=== PATIENT | female | born 1995 | race Hispanic/Latino ===

== ENCOUNTER → 2022-02-13 | Outpatient (REF) | payer OTHER ==
[2022-02-13 17:13] LABS: HEMATOCRIT 36.7 % (36.0-47.0); HEMOGLOBIN 12.2 g/dl (12.0-15.5); MEAN CORPUSCULAR HEMOGLOBIN 28.8 pg (27.0-33.0); MEAN CORPUSCULAR HGB CONC 33.2 g/dl (32.0-36.5); MEAN CORPUSCULAR VOLUME 86.8 fl (80.0-96.0); PLATELET COUNT, AUTOMATED 175 10^3/uL (150-450); RED BLOOD COUNT 4.23 10^6/uL (4.00-5.40); WHITE BLOOD COUNT 5.2 10^3/uL (4.0-10.0)
[2022-02-13 20:31] LABS: HCG, SERUM QUANTITATIVE 106079 MIU/ML
[2022-02-14 01:25] LABS: HEPATITIS C VIRUS ABY INDEX 0.1 INDEX (<0.8)
[2022-02-14 03:05] LABS: HIV 1&2 SCREEN CENTAUR NEGATIVE (NEGATIVE)
== END ==
LOC: M LAB REF 16:28
PROVIDERS: ATTEND Obstetrics & Gynecology
DX: Z32.01 Encounter for pregnancy test, result positive (principal); O36.80X0 Pregnancy with inconclusive fetal viability, not applicable or unspecified

== ENCOUNTER 2022-03-03 19:57 | Emergency (ER) | payer OTHER ==
[~2022-03-03] VITALS: Ht 160 cm; Wt 59.8 kg
[2022-03-03 21:22] LABS: BASO % 0.3 % (0.0-1.0); EOS % 0.2 % (0.0-3.0); HEMATOCRIT 37.6 % (36.0-47.0); HEMOGLOBIN 12.4 g/dl (12.0-15.5); LYMPH # 0.3 10^3/uL (1.5-5.0); LYMPH % 4.5 % (24.0-44.0); MEAN CORPUSCULAR HEMOGLOBIN 28.8 pg (27.0-33.0); MEAN CORPUSCULAR VOLUME 87.2 fl (80.0-96.0); MONO # 0.3 10^3/uL (0.0-0.8); MONO % 5.2 % (2.0-8.0); NEUTROPHILS # 5.2 10^3/uL (1.5-8.5); NEUTROPHILS % 89.3 % (36.0-66.0); PLATELET COUNT, AUTOMATED 145 10^3/uL (150-450); RED BLOOD COUNT 4.31 10^6/uL (4.00-5.40); WHITE BLOOD COUNT 5.8 10^3/uL (4.0-10.0)
[2022-03-03 21:48] LABS: ALBUMIN 3.1 GM/DL (3.2-5.2); ALT/SGPT 19 U/L (12-78); BILIRUBIN,DIRECT 0.1 MG/DL (0.0-0.2); BILIRUBIN,TOTAL 0.4 MG/DL (0.2-1.0); BLOOD UREA NITROGEN 13 MG/DL (7-18); CALCIUM LEVEL 8.7 MG/DL (8.5-10.1); CARBON DIOXIDE LEVEL 23 MEQ/L (21-32); CHLORIDE LEVEL 108 MEQ/L (98-107); CREATININE FOR GFR 0.79 MG/DL (0.55-1.30); GLOMERULAR FILTRATION RATE > 60.0 (>60); GLUCOSE, FASTING 102 MG/DL (70-100); LIPASE 99 U/L (73-393); POTASSIUM SERUM 4.3 MEQ/L (3.5-5.1); SODIUM LEVEL 139 MEQ/L (136-145); TOTAL PROTEIN 6.7 GM/DL (6.4-8.2)
[2022-03-03 22:44] LABS: HCG, SERUM QUANTITATIVE 93639 MIU/ML
[2022-03-04] MEDS ORDERED: ONDANSETRON 4MG 2ML VIAL IV ONE
[2022-03-04] MEDS ORDERED: NS 1,000 ML IV ONE
[2022-03-04] MEDS ORDERED: ACETAMINOPHEN 500 MG TAB PO ONE (00:15)
[2022-03-04 00:56] VITALS: BP 91/49
[2022-03-04] MEDS ORDERED: ONDA4TAB6 PO (01:40)
== END 2022-03-04 01:49 | disposition home or self-care (01) ==
LOC: M ED 19:57
DX: O98.511 Other viral diseases complicating pregnancy, first trimester (principal); U07.1 COVID-19; Z3A.08 8 weeks gestation of pregnancy
CPT/HCPCS: 80048; 80076; 83690; 84702; 85025; 87486; 87581; 87633; 87798; 96374; 99284; J2405

== ENCOUNTER → 2022-06-18 | Outpatient (CLI) | payer OTHER ==
[~2022-06-18] MED LIST: ONDA4TAB6 PO
[2022-06-18 09:27] LABS: HEMATOCRIT 35.1 % (36.0-47.0); HEMOGLOBIN 11.4 g/dl (12.0-15.5); MEAN CORPUSCULAR HEMOGLOBIN 28.9 pg (27.0-33.0); MEAN CORPUSCULAR HGB CONC 32.5 g/dl (32.0-36.5); MEAN CORPUSCULAR VOLUME 88.9 fl (80.0-96.0); PLATELET COUNT, AUTOMATED 144 10^3/uL (150-450); RED BLOOD COUNT 3.95 10^6/uL (4.00-5.40); WHITE BLOOD COUNT 4.9 10^3/uL (4.0-10.0)
== END ==
LOC: M LAB 08:25
PROVIDERS: ATTEND Obstetrics & Gynecology
DX: Z34.02 Encounter for supervision of normal first pregnancy, second trimester (principal); Z3A.00 Weeks of gestation of pregnancy not specified

== ENCOUNTER → 2022-09-05 | Outpatient (REF) | payer OTHER | LOC: M LAB REF 16:41 | PROVIDERS: ATTEND Obstetrics & Gynecology | DX: Z34.03 Encounter for supervision of normal first pregnancy, third trimester (principal) ==

== ENCOUNTER 2022-10-03 13:44 | Outpatient (CLI) | payer OTHER ==
[~2022-10-03] VITALS: Ht 157.5 cm; Wt 67.9 kg
[2022-10-03 14:24] VITALS: BP 123/78
[2022-10-03] MEDS ORDERED: PRENTAB9 PO (14:26)
[2022-10-03] MEDS ORDERED: HOME MED LIST COMPLETE! XX SCH (14:50)
== END 2022-10-03 17:05 | disposition home or self-care (01) ==
LOC: M LDO 13:44
PROVIDERS: ATTEND Advanced Practice Midwife
DX: O47.1 False labor at or after 37 completed weeks of gestation (principal); Z3A.40 40 weeks gestation of pregnancy
CPT/HCPCS: 59025; G0463

== ENCOUNTER 2022-10-04 12:54 | Outpatient (CLI) | payer OTHER ==
[~2022-10-04] VITALS: Ht 157.5 cm; Wt 68.3 kg
[~2022-10-04 12:54] MED LIST changes: +PRENTAB9 PO
[2022-10-04 13:08] VITALS: BP 130/83
[2022-10-04] MEDS ORDERED: HOME MED LIST COMPLETE! XX SCH (13:15)
[2022-10-04] MEDS ORDERED: LACTATED RINGER'S 1000 ML IV STA (15:19)
[2022-10-04] MEDS ORDERED: PROMETHAZINE 25MG/ML 1ML VIAL IV PRN (15:20)
[2022-10-04] MEDS ORDERED: MORPHINE 10 MG/ML 1ML VIAL SC ONE (15:20)
[2022-10-04] MEDS ORDERED: MORPHINE 10 MG/ML 1ML VIAL IV ONE (15:20)
[2022-10-04] MEDS ORDERED: LR 1,000 ML IV SCH ×2 (15:20→16:35)
[2022-10-04] MEDS ORDERED: SIMETHICONE 80MG CHEW TAB PO PRN (16:35)
[2022-10-04] MEDS ORDERED: KETOROLAC 30 MG/ML 1ML VIAL IV SCH (16:35)
[2022-10-04] MEDS ORDERED: RHOGAM 300MCG (1500IU) INJ IM SCH (16:35)
[2022-10-04] MEDS ORDERED: PERCOCET 5MG/325MG TAB PO PRN ×2 (16:35)
[2022-10-04] MEDS ORDERED: ANUSOL HC CREAM 30GM TOP PRN (16:35)
[2022-10-04] MEDS ORDERED: MOM 30ML SUSPENSION UDC PO PRN (16:35)
[2022-10-04] MEDS ORDERED: OXYTOCIN DRIP 30 UNITS in IV 1 EA IV SCH (16:35)
[2022-10-04] MEDS ORDERED: DOCUSATE SODIUM 100MG CAPSULE PO SCH (21:00)
[2022-10-05] MEDS ORDERED: PRENATAL VITAMINS CHEWABLE TABLET PO SCH (09:00)
[2022-10-05] MEDS ORDERED: IBUPROFEN 800 MG TAB PO SCH (18:35)
[2022-10-06] MEDS ORDERED: MEASLES,MUMPS,RUBELLA VACCINE INJ (MMR-II) SC.IMMUN ONE (09:00)
== END 2022-10-04 19:47 | disposition home or self-care (01) ==
LOC: M LDO 12:54
PROVIDERS: ATTEND Obstetrics & Gynecology
DX: O47.1 False labor at or after 37 completed weeks of gestation (principal); Z3A.40 40 weeks gestation of pregnancy
CPT/HCPCS: 59025; 96372; 96374; 96375; G0463; J2270; J2550

== ENCOUNTER 2022-10-06 04:57 | Inpatient (IN) | payer OTHER ==
[2022-10-06] VITALS (49 sets, daily range): BP systolic 97–147; BP diastolic 50–89
[~2022-10-06] VITALS: Ht 157.5 cm; Wt 68.1 kg
[2022-10-06] MEDS ORDERED: TUMS750C5 PO (05:24)
[2022-10-06] MEDS ORDERED: ACET325C5 PO (05:24)
[2022-10-06] MEDS ORDERED: HOME MED LIST COMPLETE! XX SCH (05:25)
[2022-10-06] MEDS ORDERED: OXYTOCIN 30UNITS IN 0.9% NaCl 500ML IV BAG As Ordered ONE (05:30)
[2022-10-06] MEDS ORDERED: LACTATED RINGER'S 1000 ML IV STA (05:33)
[2022-10-06 05:35] LABS: HEMATOCRIT 42.5 % (36.0-47.0); HEMOGLOBIN 13.8 g/dl (12.0-15.5); MEAN CORPUSCULAR HEMOGLOBIN 28.6 pg (27.0-33.0); MEAN CORPUSCULAR HGB CONC 32.5 g/dl (32.0-36.5); PLATELET COUNT, AUTOMATED 148 10^3/uL (150-450); RED BLOOD COUNT 4.83 10^6/uL (4.00-5.40); WHITE BLOOD COUNT 10.2 10^3/uL (4.0-10.0)
[2022-10-06] MEDS ORDERED: METHYLERGONOVINE MALEATE 0.2MG/ML 1ML VIAL IM PRN (05:35)
[2022-10-06] MEDS ORDERED: OXYTOCIN DRIP 30 UNITS in IV 1 EA IV PRN (05:35)
[2022-10-06] MEDS ORDERED: LIDOCAINE 1% MDV 20ML VIAL INFIL PRN (05:35)
[2022-10-06] MEDS ORDERED: CARBOPROST TROMETHAMINE 250 MCG/ML AMP IM PRN (05:35)
[2022-10-06] MEDS ORDERED: TRANEXAMIC ACID INJection 1,000 MG in NS 100 ML IV PRN (05:35)
[2022-10-06] MEDS: LR 1,000 ML IV SCH ×2 (06:23→10:10)
[2022-10-06] MEDS ORDERED: FENTANYL/ROPIVACAINE/NACL BAG 100 ML EPIDURAL SCH ×2 (06:35)
[2022-10-06] MEDS ORDERED: ePHEDrine SULFATE 25 MG/5 ML(5MG/ML) SYRINGE IVP PRN ×2 (06:35)
[2022-10-06] MEDS ORDERED: diphenhydrAMINE 50MG/ML VIAL IV PRN ×2 (06:35)
[2022-10-06] MEDS ORDERED: NALOXONE INJ 0.4MG/1ML VIAL IV PRN ×2 (06:35)
[2022-10-06] MEDS ORDERED: EPIDURAL/PCA KEYS XX PRN ×2 (06:35)
[2022-10-06] MEDS ORDERED: LR 500 ML IV PRN ×2 (06:35)
[2022-10-06] MEDS ORDERED: ONDANSETRON 4MG 2ML VIAL IV PRN ×2 (06:35)
[2022-10-06] MEDS: PRENATAL VITAMINS CHEWABLE TABLET PO SCH (09:00)
[2022-10-06] MEDS ORDERED: OXYTOCIN DRIP 30 UNITS in IV 1 EA IV SCH ×2 (11:10→16:15)
[2022-10-06] MEDS ORDERED: ACETAMINOPHEN TAB 650MG DOSE (2X325MG) PO ONE (12:45)
[2022-10-06 16:10] LABS: CORD GAS ABE A -9.1; CORD GAS HCO3 A 19.7 MEQ/L; CORD GAS O2 SAT A 77.3 %; CORD GAS PCO2 A 54.6 mmHg; CORD GAS PH A 7.176 UNITS; CORD GAS PO2 A 42.2 mmHg; CORD GAS SBC A 16.9 MEQ/L; CORD GAS TCO2 A 21.4 MEQ/L
[2022-10-06 16:11] LABS: CORD GAS ABE V -7.3; CORD GAS HCO3 V 18.3 MEQ/L; CORD GAS O2 SAT V 97.3 %; CORD GAS PCO2 V 37.6 mmHg; CORD GAS PH V 7.305 UNITS; CORD GAS PO2 V 80.9 mmHg; CORD GAS SBC V 18.6 MEQ/L; CORD GAS TCO2 V 19.4 MEQ/L
[2022-10-06] MEDS ORDERED: ACETAMINOPHEN 500 MG TAB PO PRN (16:15)
[2022-10-06] MEDS ORDERED: MOM 30ML SUSPENSION UDC PO PRN (16:15)
[2022-10-06] MEDS ORDERED: IBUPROFEN 600MG TAB PO PRN (16:15)
[2022-10-06] MEDS ORDERED: ACETAMINOPHEN TAB 650MG DOSE (2X325MG) PO PRN (16:15)
[2022-10-06] MEDS ORDERED: RHOGAM 300MCG (1500IU) INJ IM SCH (16:15)
[2022-10-06] MEDS ORDERED: METHYLERGONOVINE MALEATE 0.2 MG TAB PO PRN (16:15)
[2022-10-06] MEDS ORDERED: DIBUCAINE 1% OINTMENT 30GM TOP PRN (16:15)
[2022-10-06] MEDS: IBUPROFEN 800 MG TAB PO PRN (17:08)
[2022-10-06] MEDS: DOCUSATE SODIUM 100MG CAPSULE PO SCH (21:00)
[2022-10-07 06:00] VITALS: BP 116/55
[2022-10-07] MEDS: DOCUSATE SODIUM 100MG CAPSULE PO SCH ×2 (11:46→20:08)
[2022-10-07] MEDS: PRENATAL VITAMINS CHEWABLE TABLET PO SCH (11:46)
[2022-10-07] MEDS: IBUPROFEN 800 MG TAB PO PRN (11:46)
[2022-10-07 18:00] VITALS: BP 120/61
[2022-10-08 05:58] VITALS: BP 129/72
[2022-10-08] MEDS: PRENATAL VITAMINS CHEWABLE TABLET PO SCH (08:23)
[2022-10-08] MEDS: DOCUSATE SODIUM 100MG CAPSULE PO SCH (08:23)
[2022-10-08] MEDS ORDERED: MEASLES,MUMPS,RUBELLA VACCINE INJ (MMR-II) SC.IMMUN ONE (09:00)
[2022-10-08] MEDS ORDERED: IBUP80TA PO (11:06)
[2022-10-08] MEDS ORDERED: ACET-683 PO (11:06)
== END 2022-10-08 12:13 | disposition home or self-care (01) | DRG 807 ==
LOC: M LDO 04:57 → M LDI 05:11 → M OBS 18:30
PROVIDERS: ADMIT Advanced Practice Midwife; ATTEND Advanced Practice Midwife
PROC: 10E0XZZ Delivery of Products of Conception, External Approach (ICD-10-PCS; principal; 2022-10-06)
PROC: 10907ZC Drainage of Amniotic Fluid, Therapeutic from Products of Conception, Via Natural or Artificial Opening (ICD-10-PCS; 2022-10-06)
DX: O48.0 Post-term pregnancy (principal); Z37.0 Single live birth; Z3A.41 41 weeks gestation of pregnancy